=== PATIENT | male | born 1975 | race Caucasian/White ===

== ENCOUNTER 2022-02-18 15:28 | Emergency (ER) | payer OTHER ==
[2022-02-18 15:57] VITALS: BP 117/61; PULSE 66; TEMP 98.2; BMI 22.4
[2022-02-18] MEDS ORDERED: SODIUM CHLORIDE 1,000 ML IV STA (17:36)
[2022-02-18] MEDS ORDERED: ONDANSETRON 4 MG/2 ML VIAL IVPUSH ONE (17:37)
[2022-02-18] MEDS ORDERED: ONDANSETRON 4 MG/2 ML VIAL ONE (17:52)
[2022-02-18 18:24] LABS: BASO % 0.3 % (0-2.0); HEMATOCRIT 47.2 % (35.4-49); HEMOGLOBIN 16.3 GM/dL (11.7-16.9); LYMPH % 14.8 % (8-40); MCH 34.6 pg (25.7-33.7); MCHC 34.4 g/dl (32.0-35.9); MEAN CELL VOLUME 100.4 fl (80-96); MONO % 5.7 % (3.8-10.2); NEUT % 79.2 % (42.8-82.8); PLATELET COUNT 320 10^3/uL (134-434); RBC 4.71 M/mm3 (4.00-5.60); RDW 12.6 % (11.9-15.9); WHITE BLOOD COUNT 15.6 K/mm3 (4.0-10.0)
[2022-02-18 18:29] LABS: EPI CELLS 5 /uL (0-25.1); HYALINE CASTS 10 /uL (0-3.1); PH,URINE 5.5 (5.0-8.0); URINE APPEARANCE CLEAR; URINE BACTERIA 1 /uL (0-1359); URINE BILIRUBIN NEGATIVE (NEGATIVE); URINE COLOR YELLOW; URINE GLUCOSE (UA) NEGATIVE (NEGATIVE); URINE KETONE 4+ (NEGATIVE); URINE LEUK ESTERASE NEGATIVE (NEGATIVE); URINE NITRITE NEGATIVE (NEGATIVE); URINE PROTEIN 1+ (NEGATIVE); URINE RBC 9 /uL (0-23.9); URINE WBC 4 /uL (0-25.8)
[2022-02-18 18:47] LABS: ALBUMIN 4.8 g/dl (3.4-5.0); BLOOD UREA NITROGEN 24.8 mg/dL (7-18); CALCIUM 10.5 mg/dL (8.5-10.1)
[2022-02-18 18:48] LABS: MAGNESIUM 2.1 mg/dL (1.8-2.4)
[2022-02-18 18:51] LABS: CREATININE 1.4 mg/dL (0.55-1.3)
[2022-02-18 18:52] LABS: BILIRUBIN,TOTAL 0.8 mg/dL (0.2-1); TOT PROT 8.5 g/dl (6.4-8.2)
[2022-02-18] MEDS ORDERED: SODIUM CHLORIDE 0.9% 500 ML INFUS.BAG IV ONE (20:39)
== END 2022-02-18 21:58 | disposition home or self-care (01) ==
LOC: JER 15:28
PROC: 3E033GC Introduction of Other Therapeutic Substance into Peripheral Vein, Percutaneous Approach (ICD-10-PCS; principal; 2022-02-18)
PROC: 3E0337Z Introduction of Electrolytic and Water Balance Substance into Peripheral Vein, Percutaneous Approach (ICD-10-PCS; 2022-02-18)
DX: R10.9 Unspecified abdominal pain (principal)
CPT/HCPCS: 36415; 74177-TC; 80053; 81003; 83690; 83735; 85025; 99285-25; Q9967